=== PATIENT | female | born 1985 | race African-American/Black ===

== ENCOUNTER 2016-12-24 19:46 | Emergency (ER) | payer OTHER ==
[2016-12-24 19:55] VITALS: BP 104/66; PULSE 78; TEMP 98.4; BMI 20.9
--- NOTE | 2016-12-24 21:03 | PDOC ---
History of Present Illness - General Chief Complaint: Rash Stated Complaint: RASH Time Seen by Provider: 12/24/16 20:00 History Source: Patient - History of Present Illness Timing/Duration: reports: week Location: reports: torso Past History - Past Medical History Allergies/Adverse Reactions: Allergies Allergy/AdvReac Type Severity Reaction Status Date / Time No Known Allergies Allergy Verified 12/24/16 19:55 Home Medications: Ambulatory Orders No Home Medications 0 dose .ROUTE UTDICT 09/24/13 Other medical history: denies - Reproductive History (#): 3 Para: 1 Therapeutic (s) & number: Yes (1) Spontaneous : 1 - Immunization History Immunization Up to Date: Yes - Psycho/Social/Smoking Cessation Hx Anxiety: No Suicidal Ideation: No Smoking Status: Yes Smoking History: Never smoked Number of Cigarettes Smoked Daily: 4 Hx Alcohol Use: No Review of Systems - Review of Systems Constitutional: No: Chills, Fever Respiratory: No: Cough Integumentary: Yes: Rash *Physical Exam - Vital Signs Last Vital Signs Temp Pulse Resp BP Pulse Ox 98.4 F 78 18 104/66 99 12/24/16 19:53 12/24/16 19:53 12/24/16 19:53 12/24/16 19:53 12/24/16 19:53 - Physical Exam General Appearance: Yes: Appropriately Dressed. No: Apparent Distress HEENT: positive: Normal Voice Neck: positive: Supple Respiratory/Chest: negative: Respiratory Distress Integumentary: positive: Dry, Warm, Rash (multiple oval, pink colored papules and plaques to trunk that follows cleavage of the skin, with one solitary larger oval, pink colored patch to L lower abd. strongly sugestive of pityriasis rosea) Neurologic: positive: Fully Oriented, Alert, Normal Mood/Affect Medical Decision Making - Medical Decision Making 12/24/16 20:25 31-year-old female, no significant history, here with rash. Patient reports that rash started approximately one week ago and has since worsened. Denies any itching. No URI symptoms, fever or chills. Denies new medication or other inciting agents. No sick contacts or recent travel. Patient well-appearing and stable with trunkal rash, typical of pityriasis rosea (see exam). Pt informed that rash is most commonly caused by a virus and should resolve over the next 6 weeks. Also explain to patient that transmission rate is low. Patient to take Zyrtec, Claritin or Benadryl as needed for itching 12/24/16 21:21 *DC/Admit/Observation/Transfer Diagnosis at time of Disposition: Pityriasis rosea - Discharge Dispostion Disposition: HOME Condition at time of disposition: Good - Patient Instructions Printed Discharge Instructions: Pityriasis Rosea Additional Instructions: Your symptoms are caused mostly by a virus. There is a low transmision rate with this rash. For itching, take zrytec, claritin or benadryl
== END 2016-12-24 20:27 | disposition home or self-care (01) ==
LOC: JERFT 19:46
DX: L42 Pityriasis rosea (principal); Z87.891 Personal history of nicotine dependence
CPT/HCPCS: 99281-25

== ENCOUNTER 2017-04-18 22:14 | Emergency (ER) | payer OTHER ==
[2017-04-18 22:23] VITALS: BP 106/70; PULSE 85; TEMP 98.7; BMI 24.2
[2017-04-18] MEDS ORDERED: SODIUM CHLORIDE 0.9% 1000 ML INFUS.BAG IV ONE (23:30)
--- NOTE | 2017-04-18 23:30 | PDOC ---
History of Present Illness - General Chief Complaint: Headache Stated Complaint: HEADACHE Time Seen by Provider: 04/18/17 23:04 - History of Present Illness Initial Comments: 04/18/17 23:19 CHIEF COMPLAINT: headache HISTORY OF PRESENT ILLNESS: 31 yo 14 wk preg F presents to ED with headache x 2 days. Patient reports that she took "two Tylenol" of unknown strength without much relief. She reports that the headache is to her forehead. She denies any dizziness, nausea, vomiting, fever, chills, diarrhea. PAST MEDICAL HISTORY: Denies past medical history FAMILY HISTORY: Denies SOCIAL HISTORY: Denies tobacco, alcohol, illicit drug use. SURGICAL HISTORY: Denies ALLERGIES: No known drug allergies REVIEW OF SYSTEMS General/Constitutional: Denies fever or chills. Denies weakness, weight change. HEENT: Denies change in vision. Denies ear pain or discharge. Denies sore throat. Cardiovascular: Denies chest pain or shortness of breath. Respiratory: Denies cough, wheezing, or hemoptysis. Gastrointestinal: Denies nausea, vomiting, diarrhea or constipation. Denies rectal bleeding. Genitourinary: Denies dysuria, frequency, or change in urination. Musculoskeletal: Denies joint or muscle swelling or pain. Denies neck or back pain. Skin and breasts: Denies rash or easy bruising. Neurologic: Frontal headache. Denies vertigo, loss of consciousness, or loss of sensation. PHYSICAL EXAM General Appearance: Well-appearing, appropriately dressed. No apparent distress , no intoxication. HEENT: EOMI, PERRLA, normal ENT inspection, normal voice, TMs normal, pharynx normal. No conjunctival pallor. No photophobia, scleral icterus. Neck: Supple. Trachea midline. No tenderness, rigidity, carotid bruit, stridor , lymphadenopathy, or thyromegaly. Respiratory/Chest: Lungs CTAB. No shortness of breath, chest tenderness, respiratory distress, accessory muscle use. No crackles, rales, rhonchi, stridor , wheezing, dullness Cardiovascular: RRR. S1, S2. No JVD, murmur, bradycardia, tachycardia. Vascular Pulses: Dorsalis-Pedis (R): 2+, Dorsalis-Pedis (L): 2+ Gastrointestinal/Abdominal: Normal bowel sounds. Abdomen soft, non-distended. No tenderness or rebound tenderness. No organomegaly, pulsatile mass, guarding , hernia, hepatomegaly, splenomegaly. Lymphatic: No adenopathy, tenderness. Musculoskeletal/Extremities: Normal inspection. FROM of all extremities, normal capillary refill. Pelvis Stable. No CVA tenderness. No tenderness to extremities, pedal edema, swelling, erythema or deformity. Integumentary: Appropriate color, dry, warm. No cyanosis, erythema, jaundice or rash Neurologic: job tracer II-XII intact. Fully oriented, alert. Appropriate mood/affect. Motor strength 5/5. No appreciable EOM palsy, facial droop or sensory deficit. 04/18/17 23:57 04/19/17 00:19 04/19/17 00:49 Past History - Past Medical History Allergies/Adverse Reactions: Allergies Allergy/AdvReac Type Severity Reaction Status Date / Time No Known Allergies Allergy Verified 12/24/16 19:55 Home Medications: Ambulatory Orders No Home Medications 0 dose .ROUTE UTDICT 09/24/13 - Reproductive History (#): 3 Para: 1 Therapeutic (s) & number: Yes (1) Spontaneous : 1 - Immunization History Immunization Up to Date: Yes - Psycho/Social/Smoking Cessation Hx Anxiety: No Suicidal Ideation: No Smoking Status: Yes Smoking History: Former smoker Have you smoked in the past 12 months: No Number of Cigarettes Smoked Daily: 4 Information on smoking cessation initiated: No Hx Alcohol Use: No *Physical Exam - Vital Signs Last Vital Signs Temp Pulse Resp BP Pulse Ox 98.7 F 85 18 106/70 98 04/18/17 22:22 04/18/17 22:22 04/18/17 22:22 04/18/17 22:22 04/18/17 22:22 ED Treatment Course - LABORATORY CBC & Chemistry Diagram: 04/19/17 00:12 04/19/17 00:12 Medical Decision Making - Medical Decision Making 04/19/17 00:50 31 yo 14 wk preg F presents to ED with headache x 2 days. -CBC, CMP -UA, UCx -IVF, Tylenol, Reglan, Zantac Patient states she wants to go home because she has another child at home and cannot stay. Advised patient to stay for treatment and reevaluation. Patient signed out AMA. *DC/Admit/Observation/Transfer - Discharge Dispostion Disposition: AGAINST MEDICAL ADVICE Condition at time of disposition: Stable - Referrals Referrals: Mark Hernandez [Primary Care Provider] -
[2017-04-18] MEDS ORDERED: METOCLOPRAMIDE HCL INJECTION 10 MG/2 ML VIAL IVPB ONE (23:31)
[2017-04-18] MEDS: ACETAMINOPHEN 1000 MG/100 ML VIAL (NON FORMULARY) IVPB ONE (23:50)
[2017-04-18] MEDS ORDERED: RANITIDINE HCL 150 MG/10 ML UNIT-DOSE CUP PO ONE (23:56)
[2017-04-18] MEDS ORDERED: FAMOTIDINE 20 MG/50 ML IVPB 50 ML IVPB ONE (23:56)
[2017-04-18] MEDS ORDERED: ACETAMINOPHEN INJECTION 100 ML IVPB ONE (23:59)
[2017-04-18] MEDS ORDERED: METOCLOPRAMIDE HCL INJECTION 10 MG/2 ML VIAL ONE (23:59)
[2017-04-19] MEDS ORDERED: FAMOTIDINE 20 MG/50 ML IVPB 50 ML IVPB ONE
[2017-04-19 00:27] LABS: BASOPHIL 0.2 % (0-2.0); EOSINOPHIL 2.3 % (0-4.5); MCH 31.1 pg (25.7-33.7); MCHC 34.1 g/dl (32.0-36.0); MEAN CELL VOLUME 91.1 fl (80-96); MEAN PLT VOLUME 8.8 fl (7.5-11.1); NEUTROPHILS 73.6 % (42.8-82.8); PLATELET COUNT 198 K/MM3 (134-434); RDW 13.7 % (11.6-15.6); WHITE BLOOD COUNT 10.6 K/mm3 (4.0-10.0)
[2017-04-19] MEDS: ACETAMINOPHEN 1000 MG/100 ML VIAL (NON FORMULARY) IVPB ONE (00:36)
[2017-04-19 00:49] LABS: ALK PHOS 62 U/L (45-117); ANION GAP 9 (8-16); BILIRUBIN,TOTAL 0.1 mg/dL (0.2-1.0); CALCIUM 8.8 mg/dL (8.5-10.1); CO2 24 mmol/L (21-32); CREATININE 0.6 mg/dL (0.55-1.02); GLUCOSE,RANDOM 98 mg/dL (74-106); SGOT/AST 13 U/L (15-37); SGPT/ALT 22 U/L (12-78); TOT PROT 5.9 g/dl (6.4-8.2)
== END 2017-04-19 00:30 | disposition left against medical advice (07) ==
LOC: JER 22:14
PROC: 3E033GC Introduction of Other Therapeutic Substance into Peripheral Vein, Percutaneous Approach (ICD-10-PCS; principal; 2017-04-18)
DX: R51 Headache (principal); Z87.891 Personal history of nicotine dependence
CPT/HCPCS: 36415; 80053; 85025; 96365; 96375; 99282-25

== ENCOUNTER 2017-10-12 19:40 | Inpatient (IN) | payer OTHER ==
[2017-10-12 21:24] LABS: BASO % 0.3 % (0-2.0); EOS % 1.1 % (0-4.5); HEMATOCRIT 30.9 % (32.4-45.2); HEMOGLOBIN 9.9 GM/dL (10.7-15.3); LYMPH % 10.5 % (8-40); MCH 27.5 pg (25.7-33.7); MEAN CELL VOLUME 85.7 fl (80-96); MEAN PLT VOLUME 8.7 fl (7.5-11.1); MONO % 12.6 % (3.8-10.2); NEUT % 75.5 % (42.8-82.8); PLATELET COUNT 254 K/MM3 (134-434); RBC 3.61 M/mm3 (3.60-5.2); RDW 15.7 % (11.6-15.6); WHITE BLOOD COUNT 11.6 K/mm3 (4.0-10.0)
[2017-10-12 21:41] VITALS: BMI 31.9
[2017-10-12 21:52] LABS: INR 0.96 (0.82-1.09); PROTHROMBIN TIME (PATIENT) 10.9 SEC (9.98-11.88)
[2017-10-12 21:55] LABS: ACTIVATED PTT 23.3 SECONDS (26.9-34.4)
[2017-10-12] MEDS ORDERED: TUBERCULIN PPD 5 TU/0.1ML SYRINGE (IN PATIENT USE ONLY) ID ONE (22:00)
[2017-10-12] MEDS ORDERED: DINOPROSTONE 10 MG VAGINAL SUPPOSITORY VG ONE (22:00)
[2017-10-12 22:09] LABS: ANION GAP 9 (8-16); BLOOD UREA NITROGEN 7 mg/dL (7-18); CHLORIDE 108 mmol/L (98-107); CO2 21 mmol/L (21-32); CREATININE 0.7 mg/dL (0.55-1.02); GLUCOSE,RANDOM 107 mg/dL (74-106); SODIUM 138 mmol/L (136-145)
--- NOTE | 2017-10-13 05:32 | HP ---
Admitting History and Physical - Admission Chief Complaint: Posterm History of Present Illness: 31 yo @ 40 weeks gestation, EDC 10/12/17, admitted for induction of labor. History Source: Patient Limitations to Obtaining History: No Limitations - Past Medical History ...: 4 ...Para: 1 - Past Surgical History Past Surgical History: Yes: None - Smoking History Smoking history: Never smoked Have you smoked in the past 12 months: No Aproximately how many cigarettes per day: 4 - Alcohol/Substance Use Hx Alcohol Use: No - Social History Usual Living Arrangement: Yes: Alone History of Recent Travel: No Home Medications - Allergies Allergies/Adverse Reactions: Allergies Allergy/AdvReac Type Severity Reaction Status Date / Time No Known Allergies Allergy Verified 07/30/17 20:04 - Home Medications Home Medications: Ambulatory Orders No Home Medications 09/24/13 Family Disease History - Family Disease History Family History: Unremarkable Review of Systems - Review of Systems Constitutional: reports: No Symptoms Eyes: reports: No Symptoms HENT: reports: No Symptoms Neck: reports: No Symptoms Cardiovascular: reports: No Symptoms Respiratory: reports: No Symptoms Gastrointestinal: reports: No Symptoms Genitourinary: reports: No Symptoms Breasts: reports: No Symptoms Reported Musculoskeletal: reports: No Symptoms Integumentary: reports: No Symptoms Neurological: reports: No Symptoms Endocrine: reports: No Symptoms Hematology/Lymphatic: reports: No Symptoms Psychiatric: reports: No Symptoms Pain Intensity: 3 Physical Examination Vital Signs: Vital Signs Temperature 98.2 F 10/13/17 03:00 Pulse Rate 119 H 10/13/17 03:00 Respiratory Rate 18 10/13/17 03:00 Blood Pressure 93/70 10/13/17 03:00 O2 Sat by Pulse Oximetry (%) Constitutional: Yes: Well Nourished Eyes: Yes: Conjunctiva Clear HENT: Yes: Atraumatic Neck: Yes: Supple Cardiovascular: Yes: Regular Rate and Rhythm Respiratory: Yes: Regular Gastrointestinal: Yes: Normal Bowel Sounds Musculoskeletal: Yes: WNL Extremities: Yes: WNL Neurological: Yes: Alert, Oriented ...Motor Strength: WNL Psychiatric: Yes: Alert, Oriented Labs: CBC, BMP 10/12/17 20:35 10/12/17 20:35 Assessment/Plan Posterm Admit for cervidil induction
--- NOTE | 2017-10-13 09:28 | PN ---
Progress Note (short form) - Note Progress Note: Patient seen and re-evaluated. She c/o mild abdominal cramps. Cervidil removed VE : /-2 A/P : Posterm Status post cervidil Start Pitocin Ampicilin Anticipate
[2017-10-13] MEDS ORDERED: OXYTOCIN 15 UNITS/ LR 250 ML 15 UNIT/250 ML INFUS.BAG IVPB SCH (09:30)
[2017-10-13] MEDS: ELECTROLYTE-148 SOLN 1,000 ML IV SCH ×2 (10:20→18:00)
[2017-10-13] MEDS ORDERED: BUTORPHANOL TARTRATE 1 MG/ML VIAL IVPUSH PRN (10:22)
[2017-10-13] MEDS ORDERED: PROMETHAZINE HCL 25 MG/1 ML VIAL IVPUSH PRN (10:23)
[2017-10-13] MEDS ORDERED: OXYTOCIN IVPB ONE (10:45)
[2017-10-13] MEDS ORDERED: NS 0.9% IVPB ONE (10:45)
[2017-10-13] MEDS ORDERED: OXYTOCIN 30 UNITS in 0.9% NS 30 UNIT/500 ML INFUS.BAG IVPB SCH (11:00)
[2017-10-13] MEDS ORDERED: BUTORPHANOL TARTRATE 1 MG/ML VIAL ONE ×2 (14:45)
[2017-10-13] MEDS ORDERED: PROMETHAZINE HCL 25 MG/1 ML VIAL ONE (14:45)
[2017-10-13] MEDS ORDERED: AMPICILLIN - 2 GM in SODIUM CHLORIDE 100 ML IVPB ONE (15:30)
[2017-10-13] MEDS ORDERED: FENTANYL/BUPIVACAINE/NS/PF - PCEA - 50 ML DISP.SYRIN EP ONE (17:14)
[2017-10-13] MEDS ORDERED: FENTANYL/BUPIVACAINE/NS/PF - PCEA - 50 ML DISP.SYRIN EP SCH (18:30)
[2017-10-13] MEDS: AMPICILLIN - 1 GM in SODIUM CHLORIDE 100 ML IVPB SCH (18:30)
[2017-10-13] MEDS ORDERED: NALOXONE HCL 0.4 MG/ML VIAL IVPUSH PRN (18:30)
[2017-10-13] MEDS ORDERED: LIDOCAINE HCL 1% PRESERVATIVE FREE - 30ML VIAL ONE (19:40)
[2017-10-13] MEDS ORDERED: OXYTOCIN 20 UNITS in 0.9% NS 20 UNIT/1,000 ML INFUS.BAG IV ONE (19:40)
[2017-10-13] MEDS: OXYTOCIN 20 UNITS in 0.9% NS 20 UNIT/1,000 ML INFUS.BAG IV SCH (20:00)
[2017-10-13] MEDS ORDERED: BENZOCAINE 28 GM HEMORRHOIDAL OINTMENT TP PRN (20:13)
[2017-10-13] MEDS ORDERED: METHYLERGONOVINE MALEATE 0.2 MG/1 ML AMP IM PRN (20:13)
[2017-10-13] MEDS ORDERED: BENZOCAINE 20% 57 GM BOTTLE TP PRN (20:13)
[2017-10-13] MEDS ORDERED: WITCH HAZEL 50% (TUCKS) 40 PAD/JAR PAD TP PRN (20:13)
[2017-10-13] MEDS ORDERED: BISACODYL 10 MG SUPP.RECT RC PRN (20:13)
--- NOTE | 2017-10-13 20:16 | PN ---
Delivery - Delivery Vaginal Delivery: Spontaneous Type of Anesthesia: Epidural Episiotomy/Laceration: 2nd degree EBL (cc): 300 Delivery, Single - [place] Feeding Plan Initial Plan: Elected not to breastfeed exclusively throughout hospitalization Remarks - Remarks Remarks: Normal spontaneous vaginal delivery of a live infant boy over second degree laceration. Nose / Oropharynx suctioned @ perineum. Nuchal cord x 1 clamped and cut Placenta expelled spontaneously intact. Laceration repaired with 2.Chromic.
[2017-10-14] MEDS: AMPICILLIN - 1 GM in SODIUM CHLORIDE 100 ML IVPB SCH ×2 (01:01→03:46)
[2017-10-14] MEDS: ACETAMINOPHEN 325 MG TABLET (FP) PO PRN ×3 (01:40→21:21)
[2017-10-14] MEDS: IBUPROFEN 600 MG TABLET (FP) PO PRN ×3 (01:41→21:20)
--- NOTE | 2017-10-14 06:22 | PN ---
Post Note - Post Date of Delivery: 10/13/17 Vital Signs: Vital Signs - 24 hr 10/13/17 10/13/17 10/13/17 08:00 09:00 10:00 Temperature 97.9 F 98.2 F Pulse Rate 99 H 99 H 96 H Respiratory 18 18 18 Rate Blood Pressure 111/71 133/76 128/76 O2 Sat by Pulse Oximetry (%) 10/13/17 10/13/17 10/13/17 11:00 12:00 13:00 Temperature Pulse Rate 103 H 98 H 88 Respiratory 18 20 20 Rate Blood Pressure 104/64 114/68 117/66 O2 Sat by Pulse Oximetry (%) 10/13/17 10/13/17 10/13/17 14:00 15:00 16:00 Temperature 98.4 F 98.1 F 98.6 F Pulse Rate 96 H 108 H 90 Respiratory 20 20 20 Rate Blood Pressure 108/68 112/63 132/76 O2 Sat by Pulse Oximetry (%) 10/13/17 10/13/17 10/13/17 17:45 17:50 17:55 Temperature Pulse Rate 101 H 102 H 95 H Respiratory 18 18 18 Rate Blood Pressure 110/68 114/70 106/66 O2 Sat by Pulse 97 97 97 Oximetry (%) 10/13/17 10/13/17 10/13/17 17:57 18:00 18:15 Temperature 98.6 F Pulse Rate 109 H 102 H Respiratory 18 18 Rate Blood Pressure 112/71 117/77 O2 Sat by Pulse 96 95 Oximetry (%) 10/13/17 10/13/17 10/13/17 18:30 18:45 19:00 Temperature Pulse Rate 110 H 98 H 93 H Respiratory 18 18 20 Rate Blood Pressure 108/64 89/47 111/65 O2 Sat by Pulse 96 98 97 Oximetry (%) 10/13/17 10/13/17 10/13/17 19:15 19:30 20:15 Temperature Pulse Rate 98 H 91 H 96 H Respiratory 20 20 20 Rate Blood Pressure 119/81 122/81 127/71 O2 Sat by Pulse 97 96 Oximetry (%) 10/13/17 10/13/17 10/13/17 20:30 20:45 21:00 Temperature 98.1 F Pulse Rate 98 H 92 H 94 H Respiratory 20 20 20 Rate Blood Pressure 122/83 123/78 105/72 O2 Sat by Pulse Oximetry (%) 10/13/17 10/14/17 23:18 05:07 Temperature 98.1 F 98.3 F Pulse Rate 89 93 H Respiratory 20 20 Rate Blood Pressure 116/72 116/60 O2 Sat by Pulse Oximetry (%) Labs: Laboratory Results - last 24 hr 10/12/17 20:35 RPR Titer Nonreactive - Subjective Subjective: No Complaints - Objective Afebrile: No Breast: Not engorged Abdomen: Soft, Non-tender Uterus: Fundus firm Vagina: Scant lochia Extremities: Non-tender - Assessment/Plan (1) (normal spontaneous vaginal delivery) Assessment: S/P Normal Plan: Routine Care
[2017-10-14] MEDS: FERROUS SO4 325 MG TABLET (FP) PO SCH ×3 (08:50→16:59)
[2017-10-14 09:35] LABS: HEMATOCRIT 30.7 % (32.4-45.2); HEMOGLOBIN 9.6 GM/dL (10.7-15.3); MCH 27.3 pg (25.7-33.7); MCHC 31.3 g/dl (32.0-36.0); MEAN PLT VOLUME 7.9 fl (7.5-11.1); PLATELET COUNT 218 K/MM3 (134-434); RBC 3.53 M/mm3 (3.60-5.2); RDW 15.9 % (11.6-15.6); WHITE BLOOD COUNT 16.9 K/mm3 (4.0-10.0)
[2017-10-14] MEDS: PRENATAL VITAMINS W/ FOLIC ACID TABLET (FP) PO SCH (10:33)
[2017-10-14 12:06] LABS: ANISOCYTOSIS 1+; PLATELET ESTIMATE NORMAL
[2017-10-14] MEDS ORDERED: SENNOSIDES/DOCUSATE COMBO (SENNA PLUS) TABLET (UD) PO PRN (22:00)
[2017-10-14] MEDS: OXYTOCIN 20 UNITS in 0.9% NS 20 UNIT/1,000 ML INFUS.BAG IV SCH (22:43)
[2017-10-15] MEDS: FERROUS SO4 325 MG TABLET (FP) PO SCH ×2 (08:19→12:39)
[2017-10-15 08:47] VITALS: BP 132/72; PULSE 92; TEMP 98.7
[2017-10-15] MEDS: PRENATAL VITAMINS W/ FOLIC ACID TABLET (FP) PO SCH (09:28)
[2017-10-15] MEDS: ACETAMINOPHEN 325 MG TABLET (FP) PO PRN (09:32)
[2017-10-15] MEDS: IBUPROFEN 600 MG TABLET (FP) PO PRN (09:32)
--- NOTE | 2017-10-15 10:21 | DS ---
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 Vital Signs: Vital Signs Temperature 98.7 F 10/15/17 08:44 Pulse Rate 92 H 10/15/17 08:44 Respiratory Rate 18 10/15/17 08:44 Blood Pressure 132/72 10/15/17 08:44 O2 Sat by Pulse Oximetry (%) 96 10/13/17 19:30 Constitutional: Yes: Well Nourished Eyes: Yes: Conjunctiva Clear HENT: Yes: Atraumatic Neck: Yes: Supple Cardiovascular: Yes: Regular Rate and Rhythm Respiratory: Yes: Regular Gastrointestinal: Yes: Normal Bowel Sounds External Genitalia: Yes: Normal Vaginal Exam: Yes: Normal Cervix: Yes: Normal Uterus: Yes: Firm ....Post : Yes: Uterus firm, Moderate lochia serosa Breast(s): Yes: WNL Neurological: Yes: Alert, Oriented ...Motor Strength: WNL Psychiatric: Yes: Alert, Oriented Labs: CBC, BMP 10/14/17 09:26 10/12/17 20:35 Delivery - Delivery Vaginal Delivery: Spontaneous Type of Anesthesia: Epidural Episiotomy/Laceration: 2nd degree EBL (cc): 300 Delivery, Single - Stages of Labor Date 1st Stage Initiatied: 10/13/17 Time 1st Stage Initiated: 13:00 Date 2nd Stage Initiated: 10/13/17 Time 2nd Stage Initiated: 19:45 Date of Delivery: 10/13/17 Time of Delivery: 19:56 Time Placenta Delivered: 20:00 - 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 - 1 Minute Total Score: 9 5 Minutes Total Score: 9 - [place] Feeding Plan Initial Plan: Elected not to breastfeed exclusively throughout hospitalization Discharge Summary Reason For Visit: INDUCTION OF LABOR Current Active Problems (normal spontaneous vaginal delivery) (Acute) Procedures: Principal: Normal spontaneous vaginal delivery Hospital Course: Routine care Condition: Good - Instructions Diet, Activity, Other Instructions: Regular diet No douching, no sexual intercourse x 6 weeks F/U with MD in 6 weeks Disposition: HOME - Home Medications Comprehensive Discharge Medication List: Ambulatory Orders No Home Medications 09/24/13
== END 2017-10-15 12:20 | disposition home or self-care (01) | DRG 560 ==
LOC: JLDR 19:40 → J3W 10-13 22:27
PROVIDERS: ADMIT Obstetrics & Gynecology; ATTEND Obstetrics & Gynecology
PROC: 10E0XZZ Delivery of Products of Conception, External Approach (ICD-10-PCS; principal; 2017-10-12)
PROC: 0KQM0ZZ Repair Perineum Muscle, Open Approach (ICD-10-PCS; 2017-10-12)
DX: O48.0 Post-term pregnancy (principal); O69.81X0 Labor and delivery complicated by cord around neck, without compression, not applicable or unspecified; O70.1 Second degree perineal laceration during delivery; Z3A.40 40 weeks gestation of pregnancy; Z37.0 Single live birth
CPT/HCPCS: 36415; 59409; 80048; 85025; 85610; 85730; 86593; 86850; 86900; 86901

== ENCOUNTER 2019-01-30 09:20 | Emergency (ER) | payer OTHER ==
[2019-01-30 09:26] VITALS: TEMP 98.4; BMI 22.8
--- NOTE | 2019-01-30 09:56 | PDOC ---
Attending Attestation - Resident Resident Name: ChaseClifford - ED Attending Attestation I have performed the following: I have examined & evaluated the patient, The case was reviewed & discussed with the resident, I agree w/resident's findings & plan, Exceptions are as noted - HPI HPI: 33 yo F A1 (1 prior first trimester miscarriage) presents with vaginal bleeding. She had a recent positive home UCG, she is 5 weeks 5 days by LMP. She c/o vaginal spotting this morning, noted 1 small clot in ED. Denies lightheadedness, pain, vaginal discharge. - Physicial Exam PE: GENERAL: Awake, alert, and fully oriented, in no acute distress HEAD: No signs of trauma EYES: PERRLA, EOMI, sclera anicteric, conjunctiva clear ENT: Auricles normal inspection, hearing grossly normal, nares patent, oropharynx clear without exudates. Moist mucosa NECK: Normal ROM, supple, no lymphadenopathy, JVD, or masses LUNGS: Breath sounds equal, clear to auscultation bilaterally. No wheezes, and no crackles HEART: Regular rate and rhythm, normal S1 and S2, no murmurs, rubs or gallops ABDOMEN: Soft, nontender, normoactive bowel sounds. No guarding, no rebound. No masses EXTREMITIES: Normal range of motion, no edema. No clubbing or cyanosis. No cords, erythema, or tenderness NEUROLOGICAL: Cranial nerves II through XII grossly intact. Normal speech, normal gait. Motor and sensation intact SKIN: Warm, Dry, normal turgor, no rashes or lesions noted. - Medical Decision Making Pt with first trimester bleeding. US shows gestational sac with appropriate size for dates. Will give pelvic rest instructions, f/u for repeat B-HCG in 48 hours. Patient follows with state editor.
[2019-01-30 10:45] LABS: EPI CELLS >36 /HPF (0-5/HPF); PH,URINE 6.5 (5.0-8.0); URINE APPEARANCE CLOUDY; URINE BACTERIA 624.2 /hpf (NEGATIVE); URINE BILIRUBIN NEGATIVE (NEGATIVE); URINE CASTS 18 /lpf (0-8); URINE COLOR YELLOW; URINE GLUCOSE (UA) NEGATIVE (NEGATIVE); URINE KETONE NEGATIVE (NEGATIVE); URINE LEUK ESTERASE 1+ (NEGATIVE); URINE NITRITE NEGATIVE (NEGATIVE); URINE PROTEIN TRACE (NEGATIVE); URINE RBC 2 /hpf (0-4); URINE WBC 12 /hpf (0-5)
--- NOTE | 2019-01-30 11:36 | PDOC ---
History of Present Illness - General Chief Complaint: Vaginal Bleeding Stated Complaint: ABD PAIN Time Seen by Provider: 01/30/19 09:48 - History of Present Illness Initial Comments: HPI: 33 y/o female presenting to [facility] ER complaining of vaginal spotting starting yesterday. Associated with voiding. Denies dysuria or increased. Denies staining underwear or soaking through feminine pad. Endorses diffuse lower abdominal cramping. Denies lightheadedness, SOB, chest pain, or syncope. Feels safe in her relationship and at home. No concern for personal safety. OBGYN Hx: - LMP 12/21/2018 - ,0,2,2 - No h/o abnormal PAP smear, thinks last was performed within the last year - Denies h/o of STD OB: Dr. Vergara Medical Hx: - Pt denies past medical history. Denies maintenance prescription medications. - Taking vitamins. Surgical Hx: - D&C Review of Systems: In addition to that documented in the HPI above, the additional ROS was obtained : Constitutional: Denies fevers or chills Head: Denies vision changes ENMT: Denies sore throat CV: Denies chest pain Resp: Denies SOB GI: Denies vomiting or diarrhea : Denies painful urination or increased urinary frequency MSK: Denies recent trauma Skin: Denies new rashes Neuro: Denies new numbness or tingling or weakness Endocrine: Denies polyuria Heme: Denies bleeding or bruising Physical Examination: Constitutional: Well-developed, well-nourished adult female in no acute distress or obvious discomfort. Found sitting upright on edge of OB bed. Alert and oriented x4. Answered all questions appropriately and completely. Speech was non-labored, non-pressured. Head: Normocephalic. No obvious external signs of trauma. Eyes: Conjunctiva pink, moist, and not injected. Ears: Hearing grossly intact. Nose: No nasal discharge. Oral: [place] and moist mucosa. Neck: Supple, trachea is midline. Cardiovascular / Chest: Regular rate and regular rhythm. No murmur, rubs, clicks , or gallops. Peripheral pulses: radial pulses full. Respiratory: Breathing unlabored. Equal chest rise and fall. Clear to auscultation bilaterally. No stridor, no wheezing, no rhonchi. Gastrointestinal: abdomen is tender in LLQ and suprapubic region without rebound or guarding. Soft and non-distended. No peritoneal signs. No overlying skin lesions or obvious signs of trauma. Neuro: Alert and oriented. Moving all four extremities spontaneously. Skin: Warm, dry, and intact. : No R or L CVA tenderness. Psych: Affect: appropriate. Mood: normal. Female Pelvic: External genitalia unremarkable. Speculum exam revealed blood with clots protruding from OS. No pooling. Vaginal wall mucosa is unremarkable. Bimanual exam revealed mild right adnexal tenderness and fullness but no mass. No cervical motion tenderness. RN chaperoned exam. MDM: *Reviewed vital signs, nursing notes, and prior visit documentation (if available). 33 y/o female presenting with intermittent vaginal spotting w/ positive home test. Afebrile. Vitals unremarkable for hypotension or tachycardia. Physical exam as described above. Low suspicion for acute anemia. Beta Quant above discriminatory zone. Transvaginal U/S revealed IUP w/ yolk sac but no HR. GSA estimated 5w. Possible early versus anembryonic embryo/ blighted ovum. OS open with protruding material concerning for possible threatened . Prior documented T/S O positive. No Rhogam indication. Initial UA uninterpretable given extremely high epithelial cells. Repeated UA unremarkable for pyuria, nitrites, and leukocyte esterase. No antibiotics indicated at this time. Discussed imaging and laboratory results with pt and pts fiance. Answered all questions. Provided return precautions. Pt expressed verbal understanding and agreement with plan to discharge home with outpatient follow up with OB in two days. Clifford Chase M.D., PGY1 Emergency Medicine Resident Past History - Past Medical History Allergies/Adverse Reactions: Allergies Allergy/AdvReac Type Severity Reaction Status Date / Time No Known Allergies Allergy Verified 01/30/19 09:26 Home Medications: Ambulatory Orders NK [No Known Home Medication] 01/30/19 Asthma: No Cancer: No Cardiac Disorders: No COPD: No Diabetes: No HTN: No Seizures: No Thyroid Disease: No - Reproductive History Is Patient Now?: Yes (#): 5 Para: 2 Therapeutic (s) & number: Yes (1) Spontaneous : 1 - Immunization History Immunization Up to Date: Yes - Suicide/Smoking/Psychosocial Hx Smoking Status: Yes Smoking History: Never smoked Have you smoked in the past 12 months: No Number of Cigarettes Smoked Daily: 4 Information on smoking cessation initiated: No Hx Alcohol Use: No Drug/Substance Use Hx: No Hx Substance Use Treatment: No *Physical Exam - Vital Signs Last Vital Signs Temp Pulse Resp BP Pulse Ox 98.4 F 75 18 97/67 99 01/30/19 09:22 01/30/19 09:22 01/30/19 09:22 01/30/19 09:22 01/30/19 09:22 ED Treatment Course - ADDITIONAL ORDERS Additional order review: Laboratory Results 01/30/19 01/30/19 10:32 10:20 Beta HCG, Quant 85697.1 Urine Color Yellow Urine Appearance Cloudy Urine pH 6.5 D Ur Specific [place] 1.025 Urine Protein Trace Urine Glucose (UA) Negative Urine Ketones Negative Urine Blood 3+ H Urine Nitrite Negative Urine Bilirubin Negative Urine Urobilinogen 1.0 Ur Leukocyte Esterase 1+ H Urine WBC (Auto) 12 Urine RBC (Auto) 2 Urine Casts (Auto) 18 U Pathogenic Cast Auto None seen U Epithel Cells (Auto) >36 Urine Bacteria (Auto) 624.2 - RADIOLOGY Radiology Studies Ordered: Category Date Time Status TRANSVAGINAL US PREG [US] Stat Ultrasound 01/30/19 09:54 Completed *DC/Admit/Observation/Transfer Diagnosis at time of Disposition: Vaginal bleeding in patient at less than 20 weeks gestation - Discharge Dispostion Disposition: HOME Condition at time of disposition: Good Decision to Admit order: No - Referrals Referrals: Mark Hernandez [Primary Care Provider] - Renetta Vergara MD [Staff Physician] - - Patient Instructions Printed Discharge Instructions: DI for Vaginal Bleeding During Additional Instructions: You were seen today for vaginal spotting after a positive home test. Your test was positive here in the ED as well. Your ultrasound showed an intrauterine . The spotting may be normal in early or it could be a threatened spontaneous . You need to follow up with your OBGYN in two days to have the tests repeated. You can also return to the emergency department but this should be a last resort. I have attached copies of your results to this packet. Take it with you to the appointment so your doctor can review them. You can take over the counter Tylenol as needed for pain. Take as directed on the package insert. Do not exceed the recommended dosage. Go to the nearest emergency department if your condition worsens or you feel like you need additional emergency evaluation. Print Language: NIGERIAN - Post Discharge Activity Forms/Work/School Notes: Back to Work
[2019-01-30 12:40] VITALS: BP 105/68; PULSE 87
[2019-01-30 12:42] LABS: EPI CELLS 6.9 /HPF (0-5/HPF); URINE APPEARANCE CLEAR; URINE BACTERIA 5.4 /hpf (NEGATIVE); URINE BILIRUBIN NEGATIVE (NEGATIVE); URINE CASTS 6 /lpf (0-8); URINE COLOR YELLOW; URINE GLUCOSE (UA) NEGATIVE (NEGATIVE); URINE KETONE NEGATIVE (NEGATIVE); URINE LEUK ESTERASE NEGATIVE (NEGATIVE); URINE NITRITE NEGATIVE (NEGATIVE); URINE PROTEIN NEGATIVE (NEGATIVE); URINE RBC 1 /hpf (0-4); URINE WBC 1 /hpf (0-5)
== END 2019-01-30 12:50 | disposition home or self-care (01) ==
LOC: JER 09:20
DX: O26.891 Other specified pregnancy related conditions, first trimester (principal); O20.8 Other hemorrhage in early pregnancy; Z3A.01 Less than 8 weeks gestation of pregnancy
CPT/HCPCS: 76817-TC; 81003; 84702; 87086; 99283-25

== ENCOUNTER 2019-09-09 13:33 | Emergency (ER) | payer OTHER ==
[2019-09-09 13:39] VITALS: BP 100/65; PULSE 88; TEMP 98.1; BMI 27.3
[2019-09-09] MEDS ORDERED: IBUPROFEN 600 MG TABLET (FP) PO ONE ×3 (14:50→15:07)
--- NOTE | 2019-09-09 14:50 | PDOC ---
History of Present Illness - General Chief Complaint: Sore Throat Stated Complaint: CONGESTED/ HEADACHE/ SORE THROAT Time Seen by Provider: 09/09/19 14:09 History Source: Patient - History of Present Illness Initial Comments: 09/09/19 14:58 33-year-old female complaining of body aches, sore throat, nasal congestion for 1 day. Patient is here with 2 sons with similar symptoms. Denies past medical history denies taking anything for pain at home. Past History - Past Medical History Allergies/Adverse Reactions: Allergies Allergy/AdvReac Type Severity Reaction Status Date / Time No Known Allergies Allergy Verified 09/09/19 13:39 Home Medications: Ambulatory Orders Phenylephrine/Dm/Acetaminop/GG [Mucinex Nuic-Qbd-Xxipgvweja Lq] 5 ml PO TID PRN #1 bottle 09/09/19 Asthma: No Cancer: No Cardiac Disorders: No COPD: No Diabetes: No HTN: No Seizures: No Thyroid Disease: No - Reproductive History (#): 5 Para: 2 Therapeutic (s) & number: Yes (1) Spontaneous : 1 - Immunization History Immunization Up to Date: Yes - Psycho Social/Smoking Cessation Hx Smoking Status: Yes Smoking History: Never smoked Have you smoked in the past 12 months: No Number of Cigarettes Smoked Daily: 4 Hx Alcohol Use: No Drug/Substance Use Hx: No Hx Substance Use Treatment: No Review of Systems - Review of Systems Able to Perform ROS?: Yes Is the patient limited Bulgarian proficient: No Constitutional: Yes: Fever HEENTM: Yes: Nose Congestion, Throat Pain Respiratory: Yes: Cough. No: Symptoms reported, See HPI, Orthopnea, Shortness of Breath, SOB with Exertion, SOB at Rest, Stridor, Wheezing, Productive cough, Hemoptysis, Other Cardiac (ROS): No: Symptoms Reported, See HPI, Chest Pain, Edema, Irregular Heart Rate, Lightheadedness, Palpitations, Syncope, Chest Tightness, Other *Physical Exam - Vital Signs Last Vital Signs Temp Pulse Resp BP Pulse Ox 98.1 F 88 18 100/65 98 09/09/19 13:36 09/09/19 13:36 09/09/19 13:36 09/09/19 13:36 09/09/19 13:36 - Physical Exam General Appearance: Yes: Appropriately Dressed HEENT: positive: Pharyngeal Erythema Neck: positive: Lymphadenopathy (R), Lymphadenopathy (L) Respiratory/Chest: positive: Lungs Clear, Normal Breath Sounds Cardiovascular: positive: Regular Rhythm, Regular Rate Gastrointestinal/Abdominal: positive: Normal Bowel Sounds, Soft. negative: Tender Extremity: positive: Normal Capillary Refill, Normal Inspection, Normal Range of Motion Integumentary: positive: Normal Color, Dry, Warm Neurologic: positive: Fully Oriented, Alert Medical Decision Making - Medical Decision Making 09/09/19 15:00 A: viral syndrome P: supportive care strep test Discharge - Discharge Information Problems reviewed: Yes Clinical Impression/Diagnosis: Viral syndrome Disposition: HOME - Additional Discharge Information Prescriptions: Phenylephrine/Dm/Acetaminop/GG [Mucinex Zblb-Ier-Nedhrcmeoz Lq] 5 ml PO TID PRN #1 bottle PRN Reason: Cough - Follow up/Referral - Patient Discharge Instructions Patient Printed Discharge Instructions: DI for Viral Syndrome Additional Instructions: Drink plenty of fluids. 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 Return to the emergency room if symptoms worsen. - Post Discharge Activity Work/Back to School Note: Back to Work
== END 2019-09-09 16:20 | disposition home or self-care (01) ==
LOC: JERFT 13:33
DX: B34.9 Viral infection, unspecified (principal)
CPT/HCPCS: 87070; 87880; 99281-25

== ENCOUNTER 2022-03-23 13:42 | Emergency (ER) | payer OTHER ==
[2022-03-23 13:48] VITALS: BP 118/74; PULSE 95; TEMP 97.8; BMI 27.3
[2022-03-23] MEDS ORDERED: KETOROLAC TROMETHAMINE 30 MG/1 ML VIAL IM ONE (15:04)
[2022-03-23] MEDS ORDERED: KETOROLAC TROMETHAMINE 30 MG/1 ML VIAL ONE (15:04)
[2022-03-23] MEDS ORDERED: IBUPROFEN 600 MG TABLET (FP) PO ONE ×2 (15:09→15:10)
[2022-03-23] MEDS ORDERED: LIDOCAINE 5% TOPICAL PATCH TP ONE (15:09)
[2022-03-23] MEDS ORDERED: LIDOCAINE 5% TOPICAL PATCH ONE (15:10)
[2022-03-23] MEDS ORDERED: LIDOCAINE PATCH REMOVAL MC SCH (22:00)
== END 2022-03-23 16:05 | disposition home or self-care (01) ==
LOC: JERFT 13:42
PROC: 3E0233Z Introduction of Anti-inflammatory into Muscle, Percutaneous Approach (ICD-10-PCS; principal; 2022-03-23)
DX: M54.16 Radiculopathy, lumbar region (principal); V43.52XA Car driver injured in collision with other type car in traffic accident, initial encounter
CPT/HCPCS: 72100-TC-FY; 99284-25

== ENCOUNTER 2025-06-01 09:02 | Emergency (ER) | payer OTHER ==
[2025-06-01 09:08] VITALS: BMI 29.7
[2025-06-01] MEDS ORDERED: ACETAMINOPHEN 325 MG TABLET (FP) ONE (10:12)
[2025-06-01] MEDS: ACETAMINOPHEN 500 MG TABLET (FP) PO ONE (10:26)
[2025-06-01 10:30] LABS: ABSOLUTE IMMATURE GRANULOCYTES 0.02 x10^3/uL (0.0-0.031); BASOPHILS # 0.03 x10^3/uL (0.01-0.08); EOSINOPHIL % 2.2 % (0.7-5.8); EOSINOPHILS # 0.09 x10^3/uL (0.04-0.36); MCHC 31.3 g/dl (32.2-35.5); MEAN CELL VOLUME 92.8 fl (79.4-94.8); MEAN PLT VOLUME 9.2 fl (9.4-12.3); MONOCYTE # 0.50 x10^3/uL (0.24-0.86); MONOCYTE % 12.4 % (4.7-12.5); RDW 12.9 % (12.1-16.8)
[2025-06-01 10:37] LABS: INR 1.05 (0.83-1.09); PROTHROMBIN TIME (PATIENT) 11.4 SEC (9.7-13.0)
[2025-06-01 10:39] LABS: ACTIVATED PTT 29.2 SECONDS (25.2-36.5)
[2025-06-01 11:00] LABS: GLUCOSE,RANDOM 93.0 mg/dL (74-106); TOT PROT 6.5 g/dl (6.4-8.2)
[2025-06-01 11:01] LABS: CO2 23.0 mmol/L (21-32)
[2025-06-01 11:03] LABS: ALK PHOS 75.0 U/L (40-150)
[2025-06-01 11:05] LABS: SGOT/AST 15.0 U/L (5-34); SGPT/ALT 16.0 U/L (0-55)
[2025-06-01 11:06] LABS: CREATININE 0.74 mg/dL (0.55-1.3)
[2025-06-01 11:56] LABS: HCV DIAGNOSTIC IN-HOUSE W/RFLX NON-REACTIVE (NONREACTIVE); HIV INTERPRETATION NEGATIVE (NEGATIVE)
[2025-06-01 12:51] VITALS: BP 90/63; PULSE 64; RESP 19; TEMP 98.6
== END 2025-06-01 12:54 | disposition home or self-care (01) ==
LOC: JER 09:02
DX: N93.9 Abnormal uterine and vaginal bleeding, unspecified (principal)
CPT/HCPCS: 36415; 76817-TC; 80053; 84703; 85025; 85610; 85730; 86803; 86850; 86900; 86901; 87389; 99284-25